=== PATIENT | male | born 1940 | race Caucasian/White ===

== ENCOUNTER 2019-01-03 12:40 | Inpatient (IN) | payer OTHER ==
[2019-01-03] MEDS ORDERED: ONDANSETRON DISINTEGRATING 4 MG TAB PO PRN ×2 (13:18→19:09)
[2019-01-03] MEDS ORDERED: ACETAMINOPHEN 325 MG TAB PO PRN (13:18)
[2019-01-03] MEDS ORDERED: ONDANSETRON 4 MG/2 ML VIAL IVP PRN (13:18)
--- NOTE | 2019-01-03 14:17 | GHP ---
[f rep st] HISTORY AND PHYSICAL DATE OF ADMISSION: 01/03/2019 ADMITTING DIAGNOSIS: Abdominal pain. 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 SURGICAL HISTORY: Right shoulder reverse arthroplasty and traumatic loss of left eye at age 2. FAMILY MEDICAL HISTORY: Father at age 86. Mother at age 77, CLL. Sister alive with hypertension and high cholesterol. SOCIAL HISTORY: Single. Nonsmoker. 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 CURRENT MEDICATIONS: Include acyclovir 400 mg take 1 tablet orally twice daily , memantine HCL 10 mg p.o. twice daily, Flomax 0.4 mg 1 tablet orally daily, loperamide 2 mg 1 capsule as needed 4 times daily, cholestyramine 4 g per dose half scoop to one scoop 2-4 times daily, diphenoxylate/ atropine 2.5/0.025 mg 1 tablet as needed 4 times daily, prednisone 30 mg p.o. twice daily, gabapentin 100 mg p.o. twice daily. ALLERGIES: Sulfa. HISTORY OF PRESENT ILLNESS: The patient is an 78-year-old male who presented to the clinic today complaining of approximately 5-day history of uncontrolled diarrhea and severe abdominal pain which has progressively worsened. He was seen last week in the office after having started 40 mg p.o. twice daily of prednisone 2 weeks prior for ongoing diarrhea. Last Tuesday he reported that his diarrhea had resolved and he was experiencing formed stools, so his prednisone was reduced to 30 mg twice daily. Unfortunately, he was unable to get his prescriptions and stopped taking prednisone over the weekend. On Tuesday, the patient began to experience return of diarrhea and severe abdominal pain and cramping with very frequent loose and liquid bowel movements. The pain has worsened. The patient cannot recall when his last formed stool was, though I suspect it was probably or Tuesday. Overall , the patient has had progressively worsening failure to thrive, progressive weight loss. He does have a history of Alzheimer's dementia and is a poor historian. His son has been helping trying to keep him at home and keep his nutrition up. He has brought in help at home, who encourages him to eat regularly throughout the day and helps keep an eye on him and helps him with any daily activities as needed, but overall he has continued to lose weight and to decline. The patient has been afebrile, has not had any chills. Reports he has been trying to eat as much as possible. No cough, wheezing, shortness of breath, chest pain, palpitations. He will be admitted to the hospital for further workup of his abdominal pain. We will also attempt to address his failure to thrive. REVIEW OF SYSTEMS: CONSTITUTIONAL: Denies fever, chills. Endorses weight. Endorses fatigue. ENT: Denies vision change with his headache, sore throat, sinus or ear pain. CARDIAC: Denies chest pain, palpitations, dizziness, or lightheadedness. LUNGS: Denies shortness of breath, cough, wheezing. GI: Endorses severe abdominal pain and cramping with frequent liquid stools. Denies nausea and vomiting. URINARY: Denies urinary urgency, frequency, or hematuria. MUSCULOSKELETAL: Denies joint pain or joint swelling. NEUROLOGIC: Denies numbness, tingling, or weakness. SKIN: Denies itching, rash. PHYSICAL EXAMINATION: GENERAL: Alert and oriented in obvious distress and obvious pain. HEAD: Normocephalic, atraumatic. EENT: SYLVIA, EOMI. LUNGS: Clear to auscultation bilaterally. No wheezes, rhonchi, rales. CV: S1, S2. Regular rate and rhythm. No murmurs, rubs, gallops. GASTROINTESTINAL: Abdominal guarding. Tenderness to palpation to the left lower quadrant. Palpable stool in the descending colon. Positive bowel sounds. SKIN: Generalized maculopapular rash, erythematous rash of the abdomen, appears to be somewhat scaled, nonpruritic. EXTREMITIES: No peripheral edema. NEUROLOGIC: History of dementia and is a poor historian which is baseline. PSYCH: Cooperative, appropriate. Good insight and judgment. ASSESSMENT AND PLAN: 1. Abdominal pain. We will obtain a CT abdomen with contrast. Last creatinine was 1.1, but have labs pending for today. We will also review labs including white count, inflammatory markers, electrolytes, liver function. 2. Failure to thrive. Will likely need to discuss placement with patient and his son through this hospital stay and determine what the safest and best place for him to discharge to will be. 3. Alzheimer's dementia. Continue memantine. 4. Essential hypertension, elevated on admission, likely due to pain. Will continue to monitor and adjust medications as needed. 5. Obstructive sleep apnea while treated with CPAP. 6. Peripheral neuropathy. Recently started on 100 mg twice daily of gabapentin. Will likely continue this. 7. History of coronary artery disease. Currently without any chest pain, palpitations, dizziness, lightheadedness, or other evidence of acute coronary syndrome. We will continue to monitor. DISPOSITION: is observation while workup is being done and while we get a better idea of the patient's needs. /[id number]/MODL MTDD
[2019-01-03 14:25] LABS: PLATELET COUNT 245 10^3/uL (150-400)
[2019-01-03] MEDS ORDERED: IOPAMIDOL (ISOVUE-300) 100 ML BTL ONE (15:08)
[2019-01-03] MEDS ORDERED: BISACODYL 10 MG SUPP PR ONE (17:41)
[2019-01-03] MEDS: GABAPENTIN 100 MG CAP PO SCH (20:20)
[2019-01-03] MEDS: MEMANTINE HCL 5 MG TAB PO SCH (20:20)
[2019-01-03] MEDS: POLYETHYLENE GLYCOL 3350 17 GM PKT PO SCH (20:20)
[2019-01-03] MEDS: ACYCLOVIR 400 MG TAB PO SCH (20:20)
[2019-01-03] MEDS: EDTA EACHNARE SCH (20:25)
[2019-01-03] MEDS ORDERED: predniSONE 10 MG TAB PO SCH (21:00)
[2019-01-03] MEDS ORDERED: POLYETHYLENE GLYCOL 3350 17 GM PKT PO SCH (21:00)
--- NOTE | 2019-01-04 08:44 | SOAPPROG ---
SOAP Progress Note Assessment/Plan: Assessment: Plan: 01/04/19 08:39 abdominal pain likely related to constipation--suspect fecalith with encopresis. Will try suppository today. Pain intermittently quite intense. lymphoma--stable treatment with diarrheal side effects, will reduce prednisone memory loss--complicating outpatient management 01/04/19 08:52 Subjective: Dr Olivia reports painful cramps in his lower abdomen. No fever or chills. + watery diarrhea as a baseline due to chemotherapy. Prednisone to reduce this. + watery diarrhea around stool currently Objective: Vital Signs Temp Pulse Resp BP Pulse Ox 36.4 C 91 20 150/86 H 98 01/04/19 08:00 01/04/19 08:00 01/04/19 08:00 01/04/19 08:00 01/04/19 08:00 Laboratory Results 01/03/19 14:10 01/03/19 14:10 01/03/19 01/04/19 01/05/19 05:59 05:59 05:59 Intake Total 1060 Balance 1060 Gen: Pleasant, 1 painful spasm while talking to him HEENT: left eye prosthesis Lungs: CTAB Heart: RRR BP noted to be elevated Abd: + bs soft nt, nd LE's:no edema CT a/p constipation really only positive finding Labs generally good, left shift with neurtrophils, sed nl ICD10 Worksheet Patient Problems: Problems Problem Status Onset Cellulitis and abscess of foot Acute Cellulitis and abscess of leg, except foot Acute Coronary artery calcification seen on CAT scan Chronic
[2019-01-04] MEDS ORDERED: BISACODYL 10 MG SUPP PR ONE (08:54)
[2019-01-04] MEDS: MEMANTINE HCL 5 MG TAB PO SCH ×2 (09:21→20:44)
[2019-01-04] MEDS: POLYETHYLENE GLYCOL 3350 17 GM PKT PO SCH ×3 (09:21→20:44)
[2019-01-04] MEDS: TAMSULOSIN HCL 0.4 MG CAP PO SCH (09:21)
[2019-01-04] MEDS: ACYCLOVIR 400 MG TAB PO SCH ×2 (09:22→20:44)
[2019-01-04] MEDS: GABAPENTIN 100 MG CAP PO SCH ×2 (09:22→20:44)
[2019-01-04] MEDS: predniSONE 10 MG TAB PO SCH ×2 (09:24→20:44)
[2019-01-04] MEDS: EDTA EACHNARE SCH ×2 (09:24→20:44)
[2019-01-04] MEDS ORDERED: PNEUMOC 13-VAL CONJ-DIP CRM/PF 0.5 ML SYR (PREVNAR 13) IM ONE (10:29)
--- NOTE | 2019-01-04 14:11 | ASMTCMCOM ---
CM Note CM Note Notes: Spoke w/PT, stating pt declining therapies right now d/t diarhea and weakness. Normally lives at home w/some help set up by son. 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 DC Plan: TBD Date Signed: 01/04/2019 02:10 PM Electronically Signed By:Comfort Simms RN
--- NOTE | 2019-01-04 14:21 | WOCRNPDOC ---
WOCRN Advanced Assessment Note - Skin Integrity Problem, Advanced Assess Right Ear Pressure Injury Dressing Type: Open to Air Exudate Amount: None Josefa Wound Tissue: Erythema (minimal josefa wound area 0.5 circumfrential to wound ) Wound Bed Constitution: Stable Eschar Site Measurement - Head-to-Toe Length X Width X Depth (cm): 0.2x0.5x0 Pressure Injury Stage: Unstageable Skin Integrity Problem Comment: Wound on the helix of R ear visualized. Patient reports that he sleeps on his right side and that the wound may be due to his positioning. Discussed that this is likely the cause. However wound is healing and there are no concerns at this time. Ensured that patient did not sleep with his glasses on. No interventions necessary at this time. Right Lateral Ankle Pressure Injury Dressing Type: Open to Air Exudate Amount: None Josefa Wound Tissue: Erythema, Non-blanching, Painful/Tender Josefa Wound Swelling: Mild Wound Bed Color: Black, Brown, Yellow Wound Bed Constitution: Stable Eschar Site Odor: None Site Measurement - Head-to-Toe Length X Width X Depth (cm): 1.7x1.4x0.2 Pressure Injury Stage: Unstageable Pulse Location & Description: DP 2+ Extremity Temperature: Cool (toes) Skin Integrity Problem Comment: Josefa wound area tender per pt. Patient reports sleeps mostly on R side. Wound at least a few months old. Patient with neuropathy bilaterlly in his feet. Reports both pain and numbness and cool toes. Though pules 2+ DP/PT. Unclear is patient has claudication as he has neuropathic pain. Likely wound only pressure related as patient lies primarily on his right side. Discussed need to offload the area and that the wound is stagnant as it is necrotic and dry. Plan of care reviewed. Right Lateral Foot Pressure Injury Dressing Type: Open to Air Exudate Amount: None Josefa Wound Tissue: Erythema, Non-blanching, Painful/Tender Wound Bed Color: Black, Brown, Yellow Wound Bed Constitution: Stable Eschar Site Measurement - Head-to-Toe Length X Width X Depth (cm): 0.5x0.5x0 Pressure Injury Stage: Unstageable Skin Integrity Problem Comment: Recommend patient see a wharf helper post discharge for bony prominence on lateral right foot that is tender and has a small pressure injury. Wound is old and healing.
[2019-01-05] MEDS: HYDROmorphONE/DILAUDID 1 MG/ML INJ IVP PRN ×2 (05:02→20:53)
[2019-01-05] MEDS: predniSONE 10 MG TAB PO SCH ×2 (07:55→20:53)
[2019-01-05] MEDS: GABAPENTIN 100 MG CAP PO SCH ×2 (07:55→20:53)
[2019-01-05] MEDS: MEMANTINE HCL 5 MG TAB PO SCH ×2 (07:55→20:52)
[2019-01-05] MEDS: POLYETHYLENE GLYCOL 3350 17 GM PKT PO SCH ×3 (07:55→20:53)
[2019-01-05] MEDS: TAMSULOSIN HCL 0.4 MG CAP PO SCH (07:55)
[2019-01-05] MEDS: ACYCLOVIR 400 MG TAB PO SCH ×2 (07:55→20:52)
[2019-01-05] MEDS ORDERED: MAGNESIUM CITRATE 300 ML BOTTLE PO ONE (08:26)
--- NOTE | 2019-01-05 08:31 | SOAPPROG ---
SOAP Progress Note Assessment/Plan: Assessment: 78 yo male with h/o b-cell lymphoma, CAD, Alzheimer's dementia who was admitted for quite severe constipation and abd pain. He has a h/o chemotherapy-induced diarrhea for which he is currently on prednisone. Plan: Constipation - will start a more aggressive bowel regimen with mag citrate this morning as miralax and suppositories have not worked thus far. Alzheimer's dementia - at baseline, continue memetanide B-cell lymphoma - stable, monitored outpt Dispo - admit to inpt 01/05/19 08:28 Subjective: Gagandeep is resting in bed, c/o abd cramping and ongoing liquid stool, often incontinent. Objective: Vital Signs Temp Pulse Resp BP Pulse Ox 36.4 C 76 18 147/83 H 96 01/05/19 08:00 01/05/19 08:00 01/05/19 08:00 01/05/19 08:00 01/05/19 08:00 Laboratory Results 01/03/19 14:10 01/03/19 14:10 01/04/19 01/05/19 01/06/19 05:59 05:59 05:59 Intake Total 1060 Balance 1060 Gen- alert, appropriate Head- normocephalic, atraumatic CV- S1S2, RRR, no murmurs, rubs, gallops Resp- LCTAB, no wheezing, rhonchi, rales Abd- palpable mass to descending colon, + BS Skin - warm and dry ICD10 Worksheet Patient Problems: Problems Problem Status Onset Cellulitis and abscess of foot Acute Cellulitis and abscess of leg, except foot Acute Coronary artery calcification seen on CAT scan Chronic
[2019-01-05] MEDS ORDERED: hydrALAZINE 20 MG/ML VIAL IVP PRN (08:37)
--- NOTE | 2019-01-05 09:06 | PDMN ---
Medical Necessity Medical necessity: Change to IP, as of 01/04/19, per PA & MCG M-05; los >2 mn for ongoing management of severe abdominal pain w/diarrhea likely r/t constipation/suspected fecalith w/encopresis; requiring further monitoring & med management; comorbid advanced age, lymphoma on chemo, Alzheimer's
[2019-01-05] MEDS: EDTA EACHNARE SCH ×2 (11:15→21:02)
--- NOTE | 2019-01-05 11:43 | ASMTCMCOM ---
CM Note CM Note Notes: CM spoke w/t pt's son Dane [phone]. Pt has 4hrs of non skilled home care 7 days a week. Therapies still pending but may benefit from HH RN. Pt has dementia and has been losing weight. THERESE w/f. DC Plan: Home care Date Signed: 01/05/2019 11:42 AM Electronically Signed By:Comfort Simms RN
[2019-01-05] MEDS: PSYLLIUM METAMUCIL 1 PKT PO SCH ×2 (14:47→20:53)
[2019-01-06] MEDS: HYDROmorphONE/DILAUDID 1 MG/ML INJ IVP PRN ×2 (01:52→08:23)
[2019-01-06] MEDS: EDTA EACHNARE SCH ×2 (08:00→22:07)
[2019-01-06] MEDS: TAMSULOSIN HCL 0.4 MG CAP PO SCH (08:07)
[2019-01-06] MEDS: POLYETHYLENE GLYCOL 3350 17 GM PKT PO SCH ×3 (08:07→21:32)
[2019-01-06] MEDS: predniSONE 10 MG TAB PO SCH ×2 (08:07→21:31)
[2019-01-06] MEDS: MEMANTINE HCL 5 MG TAB PO SCH ×2 (08:07→21:31)
[2019-01-06] MEDS: GABAPENTIN 100 MG CAP PO SCH ×2 (08:07→21:31)
[2019-01-06] MEDS: PSYLLIUM METAMUCIL 1 PKT PO SCH ×2 (08:07→21:32)
[2019-01-06] MEDS: ACYCLOVIR 400 MG TAB PO SCH ×2 (08:08→21:31)
--- NOTE | 2019-01-06 11:12 | SOAPPROG ---
SOAP Progress Note Assessment/Plan: Assessment: Plan: 01/04/19 08:39 abdominal pain likely related to constipation--suspect fecalith with encopresis. Will try suppository today. Pain intermittently quite intense. lymphoma--stable treatment with diarrheal side effects, will reduce prednisone memory loss--complicating outpatient management 01/04/19 08:52 01/06/19 11:10 severe constipation--disimpacted today. Huge relief. He will likely have lots of loose stool today due to all the prior miralax. Will need a better balance of prednisone for the colitis from chemo and metamucil and miralax. Will see how he does today. Expect quick improvement. Subjective: The patient has been miserable with cramps and frustration with not being able to eat due to his bowels. He was game for a digital kontoblickimpaction. Objective: Vital Signs Temp Pulse Resp BP Pulse Ox 36.5 C 111 H 18 157/102 H 97 01/06/19 07:34 01/06/19 07:34 01/06/19 07:34 01/06/19 07:34 01/06/19 07:34 Laboratory Results 01/03/19 14:10 01/03/19 14:10 01/05/19 01/06/19 01/07/19 05:59 05:59 05:59 Intake Total 750 Balance 750 Gen: thin, miserable, pleasant Lungs: CTA Heart: RRR Abd + bs soft. Rectal vault full of hard stool. This was painfully extracted with great results. Patient oozing soft stool after hard stool mass removed. ICD10 Worksheet Patient Problems: Problems Problem Status Onset Cellulitis and abscess of foot Acute Cellulitis and abscess of leg, except foot Acute Coronary artery calcification seen on CAT scan Chronic
--- NOTE | 2019-01-06 14:21 | ASMTCMCOM ---
CM Note CM Note Notes: Met with pt and his son, had a successful bowel movement. Per PT, pt would benefit from SNF. They would like a referral to go to [facility]. DC Plan: SNF Date Signed: 01/06/2019 02:20 PM Electronically Signed By:Comfort Simms RN
[2019-01-07] MEDS ORDERED: LOSARTAN POTASSIUM 25 MG TAB PO SCH (09:00)
[2019-01-07] MEDS: ACYCLOVIR 400 MG TAB PO SCH (09:27)
[2019-01-07] MEDS: predniSONE 10 MG TAB PO SCH (09:27)
[2019-01-07] MEDS: GABAPENTIN 100 MG CAP PO SCH (09:27)
[2019-01-07] MEDS: TAMSULOSIN HCL 0.4 MG CAP PO SCH (09:27)
[2019-01-07] MEDS: POLYETHYLENE GLYCOL 3350 17 GM PKT PO SCH (09:28)
[2019-01-07] MEDS: MEMANTINE HCL 5 MG TAB PO SCH (09:28)
[2019-01-07] MEDS: PSYLLIUM METAMUCIL 1 PKT PO SCH (09:28)
[2019-01-07] MEDS: EDTA EACHNARE SCH (09:28)
--- NOTE | 2019-01-07 11:10 | SOAPPROG ---
KAY Progress Note Assessment/Plan: Assessment: Plan: 01/04/19 08:39 abdominal pain likely related to constipation--suspect fecalith with encopresis. Will try suppository today. Pain intermittently quite intense. lymphoma--stable treatment with diarrheal side effects, will reduce prednisone memory loss--complicating outpatient management 01/04/19 08:52 01/06/19 11:10 severe constipation--disimpacted today. Huge relief. He will likely have lots of loose stool today due to all the prior miralax. Will need a better balance of prednisone for the colitis from chemo and metamucil and miralax. Will see how he does today. Expect quick improvement. 01/07/19 11:04 HTN--new challenge for patient. Low dose amlodipine and low dose losartan started, will follow severe impaction--resolved diarrhea from chemo--controlled currently, will continue on 10 mg of prednisone bid (was 30 mg BID) constipation--continue metamucil and miralax once daily for now. 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 He reports low appetite. No GI distress at this point. Prior diarrhea has been well controlled with prednisone. Objective: Vital Signs Temp Pulse Resp BP Pulse Ox 36.4 C 98 20 162/92 H 96 01/07/19 08:00 01/07/19 08:00 01/07/19 08:00 01/07/19 08:00 01/07/19 08:00 Laboratory Results 01/03/19 14:10 01/03/19 14:10 01/06/19 01/07/19 01/08/19 05:59 05:59 05:59 Intake Total 750 Balance 750 Gen: NAD, pleasant, smiles Lungs: CTAB Heart: RRR BP elevated Abd + bs soft nt.nd LE's no edema Weight--underweight ICD10 Worksheet Patient Problems: Problems Problem Status Onset Cellulitis and abscess of foot Acute Cellulitis and abscess of leg, except foot Acute Coronary artery calcification seen on CAT scan Chronic
--- NOTE | 2019-01-07 11:15 | PDIAF ---
- Diagnosis Diagnosis: memory loss, weight loss, constipation with impaction, prior diarrhea Code Status: Full Code - Medication Management Usp Antibiotics: n/a Discharge Medications: electronically signed and located in the Home Medication List. PICC Care - Routine: N/A - Orders Services needed: Registered Nurse, Physical Therapy, Occupational Therapy Diet Recommendation: no restrictions on diet Diet Texture: Regular Texture Diet Marques: No (office f/u in 5-7 days) - Follow Up Care Current Providers and Referrals: Darrion Omer MD [Primary Care Provider] -
[2019-01-07 11:51] VITALS: BP 137/83
--- NOTE | 2019-01-07 12:39 | ASMTDCNOTE ---
Case Management Discharge Discharge Order Complete? Answers: Yes Patient to Obtain Answers: Other Notes: SNF Medications Transportation Arranged Answers: Francisco W/C Faxed Final Orders Answers: Yes Agency/Facility Transfer Answers: Yes Report Printed & Faxed to Receiving Agency Discharge Comments Notes: CM call to [facility], they are able to accept patient, discharging today. CM call to patel Vela, he is aware of discharge plan. CM met with patient, shared discharge plan. IM delivered and signed for receipt. Transport scheduled for 1:30pm. CM available to support if any additional CM needs arise. Date Signed: 01/07/2019 12:38 PM Electronically Signed By:Jackie Pascal
--- NOTE | 2019-01-07 14:43 | ASDISCHSUM ---
Discharge Information Plan Status:SNF Medically Cleared to Leave:01/06/2019 Discharge Date:01/07/2019 01:57 PM CM D/C [facility] ADT D/C Disposition[facility] Projected Discharge Date:01/07/2019 11:00 AM Transportation at D/C:Wheelchair Van Discharge Delay Reason: Follow-Up Date:01/07/2019 11:00 AM Discharge Slot:2 - 12:01 pm - 18:00 pm Final Diagnosis:Constipation with Impaction Placement Information Referral Type:*Home Health Care Services Referral ID:[id number] Provider Name: Address 1: Phone Number: Address 2: Fax Number: [facility] Factors: State: Referral Type:*Shelter/SNF Referral ID:[id number] Provider Name:[facility] Address 1:[address] Address 2: City:[place] Selection Factors: State:[place] Patient Contact Information Contact Name:AZAM Relationship:Son Address: City:[place] Alternate Phone: [facility]/Zip Code:[place] [address] Email: Financial Information Financial Class:Medicare Primary Plan Desc:MEDICARE INPATIENT Primary Plan Number:[id number] Secondary Plan Desc:[employer] Secondary Plan Number:[id number] Assessment Information [facility] CM Progress Note CM Note CM Note Notes: Spoke w/PT, stating pt declining therapies right now d/t diarhea and weakness. Normally lives at home w/some help set up by son. 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 Pt has 4hrs of non skilled home care 7 days a week. Therapies still pending but may benefit from RN. Pt has dementia and has been losing weight. THERESE w/f. DC Plan: Home care Date Signed: 01/05/2019 11:42 AM Electronically Signed By:Comfort Simms RN [facility] Progress Note CM Note CM Note Notes: Met with pt and his son, had a successful bowel movement. Per PT, pt would benefit from SNF. [facility] DC Plan: SNF Date Signed: 01/06/2019 02:20 PM Electronically Signed By:Comfort Simms RN Case Management Discharge Plan Note Case Management Discharge Discharge Order Complete? Answers: Yes Patient to Obtain Answers: Other Notes: SNF Medications Transportation Arranged Answers: Francisco W/Kaylyn Faxed Final Orders Answers: Yes Agency/Facility Transfer Answers: Yes Report Printed & Faxed to Receiving Agency Discharge Comments Notes: CM call to [facility], they are able to accept patient, discharging today. CM call to patel Vela, he is aware of discharge plan. CM met with patient, shared discharge plan. IM delivered and signed for receipt. Transport scheduled for 1:30pm. CM available to support if any additional CM needs arise. Date Signed: 01/07/2019 12:38 PM Electronically Signed By:Jackie Pascal Intervention Information Intervention Type:*HOPE-Signed Date of Service:01/04/2019 10:33 AM Patient Type:Observation Staff Member:Libra Andrade Hours: Discipline: Severity: Comment:
[2019-01-07] MEDS ORDERED: MIRTAZAPINE 15 MG TAB PO SCH (21:00)
[2019-01-08] MEDS ORDERED: PSYLLIUM METAMUCIL 1 PKT PO SCH (09:00)
[2019-01-08] MEDS ORDERED: POLYETHYLENE GLYCOL 3350 17 GM PKT PO SCH (09:00)
--- NOTE | 2019-01-10 10:06 | GDS ---
[f rep st] DISCHARGE SUMMARY REASON FOR ADMISSION: Abdominal pain. DISCHARGE DIAGNOSES: 1. Abdominal pain, significant to severe fecal impaction/constipation. 2. Underlying memory loss. 3. Inflammatory/reactive diarrhea to chemotherapy from treatment for lymphoma. 4. Underweight status with a severely low body mass index. HOSPITAL COURSE: The patient was admitted to the ER due to intermittent spasmodic severe abdominal p ain. CT was performed which did not show intra-abdominal pathology, but severe constipation, particu larly in the distal portion of the colon. The patient was initially attempted to clear with MiraLAX, Metamucil, Dulcolax suppositories without significant improvement. Ultimately, digital disimpaction was required, which was quite painful for the patient, but quite successful in alleviating his block age. He was pleased with the results. Given his underweight status and challenge with chemotherapy, we agreed to start him on mirtazapine, low dose, to hopefully boost his appetite. DISPOSITION: Given multiple complicating factors, he is agreeable to transition to alf f acilities to hopefully boost his weight, increase his overall support and then see if he can transiti on back to home once a bit stronger. /[id number]/MODL
== END 2019-01-07 13:57 | DRG 389 ==
LOC: F3E 12:58 → OBSVTOIN 01-04 16:01
PROVIDERS: ADMIT Nurse Practitioner Family; ATTEND Nurse Practitioner Family
DX: K56.41 Fecal impaction (principal); C85.10 Unspecified B-cell lymphoma, unspecified site; R19.7 Diarrhea, unspecified; T45.1X5A Adverse effect of antineoplastic and immunosuppressive drugs, initial encounter; G30.9 Alzheimer's disease, unspecified; F02.80 Dementia in other diseases classified elsewhere, unspecified severity, without behavioral disturbance, psychotic disturbance, mood disturbance, and anxiety; R63.6 Underweight; Z68.1 Body mass index [BMI] 19.9 or less, adult; L89.899 Pressure ulcer of other site, unspecified stage; K21.9 Gastro-esophageal reflux disease without esophagitis; E78.00 Pure hypercholesterolemia, unspecified; I25.10 Atherosclerotic heart disease of native coronary artery without angina pectoris; G47.33 Obstructive sleep apnea (adult) (pediatric); G62.9 Polyneuropathy, unspecified; I10 Essential (primary) hypertension; Z96.611 Presence of right artificial shoulder joint; Z23 Encounter for immunization
CPT/HCPCS: 97116-GP; 97161-GP; 97166-GO; 97530-GO; 97535-GO; G0008; G0009; G0378; G0379; J0360; J1170; J7512; Q9967